=== PATIENT | female | born 1990 | race Caucasian/White ===

== ENCOUNTER 2017-09-11 01:09 | Inpatient (IN) | payer OTHER ==
[~2017-09-11] VITALS: Ht 165.1 cm; Wt 83.0 kg
[2017-09-11] MEDS ORDERED: EXPECTA PRENAT1 EACH PO (02:05)
[2017-09-11] MEDS ORDERED: VENTOLIN HFA18 GM (02:06)
--- NOTE | 2017-09-12 08:00 | PR ---
[facility] [address] [facility] [place] [address] Signed PP Progress Notes Datetime Report Generated by CPN: 09/12/2017 08:00 SUBJECTIVE: [id number] Pain: Within normal limits Vital Signs: [id number] Vital Signs: Reviewed; Within Normal Limits EXAM: [id number] Cardiovascular: Not Done Respiratory: Not Done Abdomen/Uterus: Abnormal Lochia: Normal Vulva/Perineum: Not Done Breasts: Not Done CVA Tenderness: Not Done Extremities: Normal Incision: Not Applicable Progress: Normal Exam Comments: Fundus firm, NT @ U-1. IMPRESSION/PLAN/PROCEDURES: [id number] Impression: Normal progression Plan: Discharge Procedures: None Progress Notes: Doing well. She is ready for D/C. Signing Physician: Arlen Morris MD CC: *Electronically Signed* 09/12/17 0800 ARLEN MORRIS MD PATIENT NAME: JACQUES ANGEL PROGRESS NOTE DATE OF : 89 PHYSICIAN: ARLEN MORRIS MD RPT #: [id number] REPORT IS CONFIDENTIAL AND NOT TO BE RELEASED WITHOUT AUTHORIZATION
== END 2017-09-12 13:10 | disposition home or self-care (01) | DRG 775 ==
LOC: FBCO 01:09 → FBC 01:35
PROVIDERS: ADMIT General Practice
PROC: 10E0XZZ Delivery of Products of Conception, External Approach (ICD-10-PCS; principal; 2017-09-11)
PROC: 00HU33Z Insertion of Infusion Device into Spinal Canal, Percutaneous Approach (ICD-10-PCS; 2017-09-11)
PROC: 3E0R3BZ Introduction of Anesthetic Agent into Spinal Canal, Percutaneous Approach (ICD-10-PCS; 2017-09-11)
DX: O80 Encounter for full-term uncomplicated delivery (principal); Z37.0 Single live birth; Z3A.38 38 weeks gestation of pregnancy
CPT/HCPCS: 01960; 36415; 85027; J2590; J2795